=== PATIENT | female | born 1975 | race Two or more races ===

== ENCOUNTER 2017-08-21 09:55 | Emergency (ER) | payer BC ==
[~2017-08-21] VITALS: Ht 160 cm; Wt 87.5 kg
[~2017-08-21 09:55] MED LIST: ATORVASTATIN CA20 MG PO; CENTRUM COMPLE1 EACH PO; LEVOTHYROXINE88 MCG PO; NAPROSYN500 MG PO; ULTRAM50 MG PO
[2017-08-21 11:09] LABS: CHLORIDE 105 mEq/L (99-109); POTASSIUM 3.4 mEq/L (3.7-5.4); SODIUM 139 mEq/L (136-147)
[2017-08-21 11:11] LABS: GLUCOSE 91 mg/dL (70-99)
[2017-08-21 11:12] LABS: ANION GAP 13 MEQ/L (2-14)
[2017-08-21 11:14] LABS: GFR ESTIMATE (CALCULATED) > 59 mL/min/
[2017-08-21 11:15] LABS: UREA NITROGEN (BUN) 12 mg/dL (9-23)
[2017-08-21 12:03] LABS: C DIFF TOXIN NEGATIVE (NEGATIVE)
[2017-08-21 12:06] LABS: PROBE CHECK PASS; SPECIMEN PROCESSING CONTROL PASS
[2017-08-21] MEDS ORDERED: ZOFRAN4 MG PO (12:20)
[2017-08-21 12:32] VITALS: BP 118/77
[2017-08-21] MEDS ORDERED: ULTRAM50 MG PO (13:09)
== END 2017-08-21 13:14 | disposition home or self-care (01) ==
LOC: EME 09:55
PROVIDERS: Emergency Medicine
DX: R19.7 Diarrhea, unspecified (principal); R11.2 Nausea with vomiting, unspecified; B34.9 Viral infection, unspecified; R10.9 Unspecified abdominal pain; R53.83 Other fatigue; R51 Headache
CPT/HCPCS: 80048; 87493; 87506; 99281; 99284